=== PATIENT | female | born 1985 | race Caucasian/White ===

== ENCOUNTER 2016-11-09 15:47 | Emergency (ER) | payer BC, OTHER ==
[2016-11-09 16:00] VITALS: BP 125/79; PULSE 88; TEMP 97.9; BMI 51.7
[2016-11-09] MEDS ORDERED: OXYCODONE/APAP 5/325MG COMBO TABLET PO ONE (16:00)
[2016-11-09] MEDS ORDERED: NAPROXEN 500 MG TABLET (FP) PO ONE (16:00)
[2016-11-09] MEDS ORDERED: OXYCODONE/APAP 5/325MG COMBO TABLET ONE (16:07)
[2016-11-09] MEDS ORDERED: NAPROXEN 500 MG TABLET (FP) ONE (16:07)
--- NOTE | 2016-11-09 16:07 | PDOC ---
History of Present Illness - History of Present Illness Initial Comments: 11/09/16 16:07 The patient is a 31 year old female, with a significant past medical history of PCOS and anxiety, who presents to the emergency department with left ankle pain s/p falling down 3 to 4 steps while walking down with laundry this afternoon. She reports pain and swelling to her left ankle. She reports some mild pain to her lower leg, just above her ankle. She denies taking any medication for pain. She denies chest pain, shortness of breath, headache and dizziness. She denies fever, chills, nausea, vomit, diarrhea and constipation. She denies dysuria, frequency, urgency and hematuria. Allergies: moxifloxacin HCl, latex Social history: admits to occasional alcohol consumption <Leydi Berrios - Last Filed: 11/09/16 17:13> - General History Source: Patient Exam Limitations: No Limitations <Lexa Omer - Last Filed: 11/09/16 18:05> - General Chief Complaint: Injury Stated Complaint: LEFT ANKLE PAIN S/P FALL Time Seen by Provider: 11/09/16 15:49 Past History <Leydi Berrios - Last Filed: 11/09/16 17:13> - Past Medical History Anemia: No Asthma: No Cancer: No Cardiac Disorders: No CVA: No COPD: No CHF: No Dementia: No Diabetes: No GI Disorders: Yes (REFLUX) Disorders: Yes (PCOS) HTN: No Hypercholesterolemia: No Liver Disease: No Psychiatric Problems: Yes (DEPRESSION/ANXIETY) Suicide Attempt (Hx): No Seizures: No Thyroid Disease: Yes - Surgical History Abdominal Surgery: No Appendectomy: No Cardiac Surgery: No Cholecystectomy: No Lung Surgery: No Neurologic Surgery: No Orthopedic Surgery: No - Psycho/Social/Smoking Cessation Hx Anxiety: Yes Suicidal Ideation: No Smoking History: Current every day smoker Have you smoked in the past 12 months: Yes Number of Cigarettes Smoked Daily: 5 If you are a former smoker, when did you quit?: 3 weeks ago Information on smoking cessation initiated: Yes 'Breaking Loose' booklet given: 12/01/15 Hx Alcohol Use: No Drug/Substance Use Hx: No Substance Use Type: None Hx Substance Use Treatment: No <Lexa Omer - Last Filed: 11/09/16 18:05> - Past Medical History Allergies/Adverse Reactions: Allergies Allergy/AdvReac Type Severity Reaction Status Date / Time latex Allergy Intermediate Verified 11/09/16 15:49 moxifloxacin HCl Allergy Intermediate Verified 11/09/16 15:49 [From Avelox] Home Medications: Ambulatory Orders Fluoxetine HCl [PROzac] 40 mg PO DAILY 09/05/12 Metformin HCl [Glucophage] 1,000 mg PO BID 09/05/12 Cetirizine HCl [Zyrtec -] 5 mg PO DAILY 02/27/15 Famotidine 10 mg PO DAILY 02/27/15 Norethindrone AC-Eth Estradiol [Microgestin 21 1-20 Tablet] 1 each PO HS Naproxen [Naprosyn -] 500 mg PO BID PRN #20 tablet 11/09/16 Oxycodone HCl/Acetaminophen [Percocet 5-325 mg Tablet] 1 tab PO Q6H PRN #10 tablet MDD 4 11/09/16 Review of Systems - Review of Systems Able to Perform ROS?: Yes Comments:: 11/09/16 16:08 GENERAL/CONSTITUTIONAL: No fever or chills. No weakness. HEAD, EYES, EARS, NOSE AND THROAT: No change in vision. No ear pain or discharge. No sore throat. CARDIOVASCULAR: No chest pain or shortness of breath. RESPIRATORY: No cough, wheezing, or hemoptysis. GASTROINTESTINAL: No nausea, vomiting, diarrhea or constipation. GENITOURINARY: No dysuria, frequency, or change in urination. MUSCULOSKELETAL: (+) left ankle pain and swelling. No muscle swelling or pain. No neck or back pain. SKIN: No rash NEUROLOGIC: No headache, vertigo, loss of consciousness, or change in strength/ sensation. ENDOCRINE: No increased thirst. No abnormal weight change. HEMATOLOGIC/LYMPHATIC: No anemia, easy bleeding, or history of blood clots. ALLERGIC/IMMUNOLOGIC: No hives or skin allergy. <Leydi Berrios - Last Filed: 11/09/16 17:13> *Physical Exam - Vital Signs Last Vital Signs Temp Pulse Resp BP Pulse Ox 97.9 F 88 18 125/79 97 11/09/16 15:48 11/09/16 15:48 11/09/16 15:48 11/09/16 15:48 11/09/16 15:48 - Physical Exam Comments: 11/09/16 16:08 GENERAL: Awake, alert, and fully oriented, in no acute distress HEAD: No signs of trauma EYES: PERRLA, EOMI, sclera anicteric, conjunctiva clear ENT: Auricles normal inspection, hearing grossly normal, nares patent, oropharynx clear without exudates. Moist mucosa NECK: Normal ROM, supple, no lymphadenopathy, JVD, or masses LUNGS: Breath sounds equal, clear to auscultation bilaterally. No wheezes, and no crackles HEART: Regular rate and rhythm, normal S1 and S2, no murmurs, rubs or gallops ABDOMEN: Soft, nontender, normoactive bowel sounds. No guarding, no rebound. No masses EXTREMITIES: (+) tenderness and swelling to the medial malleolus. Slight laxity on eversion and inversion of left ankle. Mildly tender to distal 3rd tibia and fibula. 2+ DP pulse sensation intact throughout [id number]. No clubbing or cyanosis. No cords, erythema NEUROLOGICAL: Cranial nerves II-XII intact. Normal speech, normal gait. Sensation intact in upper and lower extremities. 5/5 motor strength in upper and lower extremities. No pronator drift. Finger to nose intact. Rapid alternations intact. SKIN: Warm, Dry, normal turgor, no rashes or lesions noted. <Leydi Berrios - Last Filed: 11/09/16 17:13> - Vital Signs Last Vital Signs Temp Pulse Resp BP Pulse Ox 97.9 F 88 18 125/79 97 11/09/16 15:48 11/09/16 15:48 11/09/16 15:48 11/09/16 15:48 11/09/16 15:48 <Lexa Omer - Last Filed: 11/09/16 18:05> Procedures - Splinting Splint Location: Left: Ankle Pre-Proc Neuro Vasc Exam: normal Hand-Made Type: orthoglass Splint Type: Yes: Posterior Post-Proc Neuro Vasc Exam: normal Azar Bandage: 4" Sling: No Complications: No <Lexa Omer - Last Filed: 11/09/16 18:05> ED Treatment Course - RADIOLOGY Radiograph Interpretation: 11/09/16 17:13 Preliminary read of left ankle xray and left tib/fib xray by Dr. Omer at 16:45 Impression: no fractures or bony deformities, suggestive for high-degree sprain <AgustinaLeydi - Last Filed: 11/09/16 17:13> - RADIOLOGY Radiology Studies Ordered: Category Date Time Status ANKLE-LEFT [RAD] Stat Radiology 11/09/16 16:00 Ordered LEG TIB/FIB-LEFT [RAD] Stat Radiology 11/09/16 16:01 Ordered <Lexa Omer - Last Filed: 11/09/16 18:05> Medical Decision Making - Medical Decision Making 11/09/16 16:05 A portion of this note was documented by scribe services under my direction. I have reviewed the details of the note, within reason, and agree with the documentation with the following case summary and management plan written by me. Patient treated in the ED. Nursing notes are reviewed and incorporated into the medical decision-making. Vital signs reviewed. Peripheral IV access obtained by the nurse, laboratory studies are drawn and sent, reviewed and interpreted by myself. Vital Signs Temp Pulse Resp BP Pulse Ox 97.9 F 88 18 125/79 97 11/09/16 15:48 11/09/16 15:48 11/09/16 15:48 11/09/16 15:48 11/09/16 15:48 31-year-old female with history of PCO S presents with left ankle pain. Patient was walking down her stairs and misstepped a step and twisted her ankle severely. Unable to cannulate afterwards. Denies numbness or weakness. Patient' s neurovascular intact. She has edema and pain and some laxity on eversion and inversion of the left ankle. Differential includes left ankle fracture, high- grade sprain. We'll also need to rule out syndesmosis disruption. Obtain left tib fib x-ray. 11/09/16 17:38 Xray reviewed by me, pending official radiology read. No obvious fractures, but will need radiology read. Read by radiology. No fractures. Regardless, pt would benefit from a posterior U splint. Posterior U splint applied. Nonweight bearing NSAIDS. Ice PRN. Follow up with orthopedics. I discussed the physical exam findings, ancillary test results and final diagnoses with the patient. I answered all of the patient's questions. The patient was satisfied with the care received and felt comfortable with the discharge plan and treatment plan. The patient will call their primary care physician within 24 hours to arrange follow-up and will return to the Emergency Department with any new, persistant or worsening symptoms. <Lexa Omer - Last Filed: 11/09/16 18:05> *DC/Admit/Observation/Transfer - Attestations Scribe Attestion: 11/09/16 16:10 Documentation prepared by Leydi Berrios, acting as medical record technician for Lexa Omer MD, <Leydi Berrios - Last Filed: 11/09/16 17:13> - Discharge Dispostion Admit: No <Lexa Omer - Last Filed: 11/09/16 18:05> Diagnosis at time of Disposition: Ankle sprain Qualifiers: Encounter type: initial encounter Involved ligament of ankle: unspecified ligament Laterality: left Qualified Code(s): S93.402A - Sprain of unspecified ligament of left ankle, initial encounter - Discharge Dispostion Disposition: HOME Condition at time of disposition: Stable - Prescriptions Prescriptions: Naproxen [Naprosyn -] 500 mg PO BID PRN #20 tablet PRN Reason: Pain Oxycodone HCl/Acetaminophen [Percocet 5-325 mg Tablet] 1 tab PO Q6H PRN #10 tablet MDD 4 PRN Reason: Pain Level 6-10 - Referrals Referrals: Sean Velasco MD [Staff Physician] - - Patient Instructions Printed Discharge Instructions: DI for Ankle Sprain Additional Instructions: Your xrays are negative for fracture. However, we are treating this as a high degree sprain. At this time, wear the splint at all times. Elevate the leg as much as you can. Use crutches. Ice as needed. 500 mg naproxen every 12 hours as needed for pain. Only if needed, you may take a tablet of percocet every 6 hours as needed for severe pain. Please follow up with an orthopedist. Call to schedule an appointment. - Post Discharge Activity Work/School Note: Back to Work
== END 2016-11-09 18:16 | disposition home or self-care (01) ==
LOC: FER 15:47
PROC: 2W3TX1Z Immobilization of Left Foot using Splint (ICD-10-PCS; principal; 2016-11-09)
DX: S93.402A Sprain of unspecified ligament of left ankle, initial encounter (principal); W10.9XXA Fall (on) (from) unspecified stairs and steps, initial encounter; Y93.89 Activity, other specified; Y92.9 Unspecified place or not applicable; F17.210 Nicotine dependence, cigarettes, uncomplicated; K21.9 Gastro-esophageal reflux disease without esophagitis; E28.2 Polycystic ovarian syndrome; F41.8 Other specified anxiety disorders; E07.9 Disorder of thyroid, unspecified; Z79.84 Long term (current) use of oral hypoglycemic drugs
CPT/HCPCS: 29515; 73590-TC-LT; 73610-TC-LT; 99283-25

== ENCOUNTER 2020-06-08 11:58 | Emergency (ER) | payer OTHER ==
[2020-06-08 12:18] VITALS: BP 116/62; PULSE 88; TEMP 99.6; BMI 62.6
[2020-06-08] MEDS ORDERED: IBUPROFEN 400 MG TABLET (FP) PO ONE ×2 (12:21→13:07)
== END 2020-06-08 13:47 | disposition home or self-care (01) ==
LOC: FER 11:58
DX: M79.671 Pain in right foot (principal); S90.31XA Contusion of right foot, initial encounter
CPT/HCPCS: 73630-TC-RT-FY; 99284-25

== ENCOUNTER 2020-12-05 19:03 | Emergency (ER) | payer OTHER ==
[2020-12-05 19:18] VITALS: BP 159/85; PULSE 92; TEMP 99; BMI 62.3
[2020-12-05] MEDS ORDERED: ACETAMINOPHEN 500 MG TABLET (FP) PO ONE (19:35)
[2020-12-05] MEDS ORDERED: ACETAMINOPHEN 500 MG TABLET (FP) ONE (19:39)
[2020-12-05 19:40] LABS: EOS % 2.6 % (0-4.5); HEMOGLOBIN 11.7 GM/dl (10.7-15.3)
[2020-12-05 19:44] LABS: HEMATOCRIT 35.1 % (32.4-45.2); LYMPH % 24.7 % (8-40); MCH 27.7 pg (25.7-33.7); MCHC 33.4 g/dl (32.0-36.0); MEAN PLT VOLUME 8.3 fl (7.5-11.1); MONO % 6.4 % (3.8-10.2); NEUT % 65.3 % (42.8-82.8); PLATELET COUNT 409 K/MM3 (134-434); RBC 4.23 M/mm3 (3.60-5.2); RDW 14.6 % (11.6-15.6)
[2020-12-05 19:58] LABS: ALBUMIN 3.9 g/dl (3.4-5.0); BILIRUBIN,TOTAL 0.4 mg/dl (0.2-1); CALCIUM 8.9 mg/dl (8.5-10); CREATININE 0.8 mg/dl (0.55-1.3); TOT PROT 7.2 g/dl (6.4-8.2)
== END 2020-12-05 20:58 | disposition home or self-care (01) ==
LOC: FER 19:03
DX: R00.2 Palpitations (principal)
CPT/HCPCS: 36415; 80053; 82550; 84484; 85025; 93005; 93010; 99284-25

== ENCOUNTER 2021-04-09 18:34 | Emergency (ER) | payer OTHER ==
[2021-04-09 18:45] VITALS: BP 133/110; PULSE 94; TEMP 98.3; BMI 59.8
[2021-04-09] MEDS ORDERED: KETOROLAC TROMETHAMINE 15 MG/ML VIAL IM ONE (19:25)
[2021-04-09] MEDS ORDERED: METHOCARBAMOL 750 MG TABLET PO ONE (19:25)
[2021-04-09] MEDS ORDERED: METHOCARBAMOL 500 MG TABLET ONE (19:30)
[2021-04-09] MEDS ORDERED: KETOROLAC TROMETHAMINE 30 MG/1 ML VIAL ONE (19:31)
== END 2021-04-09 22:06 | disposition home or self-care (01) ==
LOC: FER 18:34
PROC: 3E0233Z Introduction of Anti-inflammatory into Muscle, Percutaneous Approach (ICD-10-PCS; principal; 2021-04-09)
DX: S16.1XXA Strain of muscle, fascia and tendon at neck level, initial encounter (principal); M25.511 Pain in right shoulder; W10.9XXA Fall (on) (from) unspecified stairs and steps, initial encounter; Y93.E2 Activity, laundry; Y93.01 Activity, walking, marching and hiking
CPT/HCPCS: 73000-TC-RT-FY; 73030-TC-RT-FY; 99284-25

== ENCOUNTER 2021-05-16 22:55 | Emergency (ER) | payer OTHER ==
[2021-05-16 23:04] VITALS: BP 143/86; PULSE 83; TEMP 99.1; BMI 47.0
[2021-05-16] MEDS ORDERED: CIPROFLOXACIN HCL 0.3% OPHTH 2.5ML BOTTLE ONE (23:50)
== END 2021-05-16 23:59 | disposition home or self-care (01) ==
LOC: FER 22:55
DX: S05.01XA Injury of conjunctiva and corneal abrasion without foreign body, right eye, initial encounter (principal)
CPT/HCPCS: 99283-25

== ENCOUNTER 2022-01-23 21:28 | Emergency (ER) | payer OTHER ==
[2022-01-23 21:51] VITALS: BP 142/80; PULSE 112; TEMP 100.1; BMI 46.9
[2022-01-23] MEDS ORDERED: DIPHTH,PERTUSS(ACELL),TET 0.5 ML DISP.SYRIN IM ONE ×2 (21:52→21:54)
== END 2022-01-23 21:59 | disposition home or self-care (01) ==
LOC: FER 21:28
PROC: 3E0234Z Introduction of Serum, Toxoid and Vaccine into Muscle, Percutaneous Approach (ICD-10-PCS; principal; 2022-01-23)
DX: S61.212A Laceration without foreign body of right middle finger without damage to nail, initial encounter (principal); W27.4XXA Contact with kitchen utensil, initial encounter
CPT/HCPCS: 90471; 90715; 99284-25

== ENCOUNTER 2022-11-03 20:58 | Emergency (ER) | payer OTHER ==
[2022-11-03] MEDS ORDERED: methylPREDNISolone NA SUCC 125 MG/2 ML VIAL IVPUSH ONE (21:00)
[2022-11-03] MEDS ORDERED: EPINEPHrine 1:1,000 0.3 MG/0.3 ML SYR IM ONE ×3 (21:00→21:38)
[2022-11-03] MEDS ORDERED: FAMOTIDINE 20 MG/50 ML IVPB 20 MG/50 ML MG IVPB ONE ×2 (21:01→21:22)
[2022-11-03] MEDS ORDERED: ALBUTEROL SO4 0.083% IH SOL 2.5 MG/3 ML VIAL.NEB. NEB ONE (21:02)
[2022-11-03] MEDS: ALBUTEROL SO4 0.083% IH SOL 2.5 MG/3 ML VIAL.NEB. NEB ONE ×2 (21:05→21:45)
[2022-11-03 21:16] VITALS: TEMP 98.3; BMI 61.0
[2022-11-03] MEDS ORDERED: methylPREDNISolone NA SUCC 125 MG/2 ML VIAL ONE (21:22)
[2022-11-03] MEDS ORDERED: EPINEPHrine/PF 1 MG/1 ML (1:1,000) AMPULE ONE ×2 (21:25→21:38)
[2022-11-03 22:06] LABS: HEMATOCRIT 45.8 % (32.4-45.2); HEMOGLOBIN 15.5 G/dL (10.7-15.3); MCH 29.6 pg (25.7-33.7); MCHC 33.8 g/dl (32.0-36.0); MEAN CELL VOLUME 87.6 fl (80-96); MEAN PLT VOLUME 8.5 fl (7.5-11.1); RBC 5.23 10^6/uL (3.60-5.2); RDW 15.5 % (11.6-15.6); WHITE BLOOD COUNT 13.8 10^3/uL (4.0-10.8)
[2022-11-03 22:11] LABS: ALBUMIN 3.7 g/dl (3.4-5.0); BILIRUBIN,TOTAL 0.7 mg/dl (0.2-1); CALCIUM 9.2 mg/dl (8.5-10); TOT PROT 7.4 g/dl (6.4-8.2)
[2022-11-03 22:55] LABS: PLATELET ESTIMATE SLT INCREASE
[2022-11-03 23:46] VITALS: BP 157/76; PULSE 106; RESP 18
== END 2022-11-04 01:13 | disposition home or self-care (01) ==
LOC: FER 20:58
PROC: 3E033GC Introduction of Other Therapeutic Substance into Peripheral Vein, Percutaneous Approach (ICD-10-PCS; principal; 2022-11-03)
PROC: 3E033GC Introduction of Other Therapeutic Substance into Peripheral Vein, Percutaneous Approach (ICD-10-PCS; 2022-11-03)
PROC: 3E033GC Introduction of Other Therapeutic Substance into Peripheral Vein, Percutaneous Approach (ICD-10-PCS; 2022-11-03)
PROC: 3E0F7GC Introduction of Other Therapeutic Substance into Respiratory Tract, Via Natural or Artificial Opening (ICD-10-PCS; 2022-11-03)
PROC: 3E023GC Introduction of Other Therapeutic Substance into Muscle, Percutaneous Approach (ICD-10-PCS; 2022-11-03)
DX: R21 Rash and other nonspecific skin eruption (principal); R06.02 Shortness of breath; R06.2 Wheezing; I95.9 Hypotension, unspecified; T78.2XXA Anaphylactic shock, unspecified, initial encounter
CPT/HCPCS: 36415; 80053; 85027; 99284-25; J0171

== ENCOUNTER 2023-06-20 20:39 | Emergency (ER) | payer OTHER ==
[2023-06-20 20:44] VITALS: BP 134/73; PULSE 102; RESP 19; TEMP 99.4; BMI 55.9
[2023-06-20] MEDS ORDERED: IBUPROFEN 400 MG TABLET (FP) PO ONE ×2 (21:09→21:30)
[2023-06-20] MEDS ORDERED: LIDOCAINE 5% TOPICAL PATCH TP ONE (22:01)
[2023-06-21] MEDS ORDERED: LIDOCAINE PATCH REMOVAL MC SCH (10:00)
== END 2023-06-20 23:19 | disposition home or self-care (01) ==
LOC: FER 20:39
DX: S49.91XA Unspecified injury of right shoulder and upper arm, initial encounter (principal); W05.0XXA Fall from non-moving wheelchair, initial encounter; Y92.9 Unspecified place or not applicable
CPT/HCPCS: 73030-TC-RT-FY; 99283-25

== ENCOUNTER 2023-10-30 22:21 | Emergency (ER) | payer OTHER ==
[2023-10-30 22:29] VITALS: BP 166/86; PULSE 106; RESP 18; TEMP 99; BMI 55.9
== END 2023-10-30 23:03 | disposition home or self-care (01) ==
LOC: FER 22:21
PROC: 0Y9D3ZZ Drainage of Left Upper Leg, Percutaneous Approach (ICD-10-PCS; principal; 2023-10-30)
DX: L02.416 Cutaneous abscess of left lower limb (principal)
CPT/HCPCS: 99283-25